=== PATIENT | female | born 1940 | race Caucasian/White ===

== ENCOUNTER → 2017-11-28 09:52 | Outpatient (CLI) | payer MEDICARE, SELFPAY ==
[2017-11-28 12:24] LABS: Absolute Lymphocyte Count 2.25 X10^3/ul (0.83-4.51); Basophil# 0.06 X10^3/uL; Eosinophil# 0.23 X10^3/uL; Eosinophils% 3.8 % (0-5); Hematocrit 39.2 % (37-47); Hemoglobin 13.1 g/dl (12.0-15.0); Lymphocyte # 2.25 X10^3/ul (4.0); Lymphocyte % 37.4 % (19-41); Mean Corp Hgb Conc 33.4 g/gl (32-36); Mean Corpuscular Hgb 32.8 pg (27.0-32.0); Monocyte# 0.44 X10^3/uL; Monocyte% 7.3 % (0-10); Neutrophil # 3.02 X10^3/uL (2.7-7.7); Neutrophil % 50.3 % (47-70); Platelet Count 332 K/mm3 (150-450); RBC Distribution Width CV 13.2 % (11.6-14.6); RBC Distribution Width SD 47.1 fl (35.1-43.9)
[2017-11-28 12:30] LABS: Microalbumin,Random Urine 12.4 mg/L (NO RANGE EST.); Microalbumin:Creatinine Ratio 50.8 mg/g CRE (<30 mg/g CRE)
[2017-11-28 12:33] LABS: POSITIVE COUNT NO; POSITIVE DIFFERENTIAL NO; POSITIVE MORPHOLOGY NO
[2017-11-28 12:37] LABS: Hemoglobin A1c 9.3 % (4.2-6.3); Vitamin D,25 Hydroxy 34.5 ng/mL (29.95-100.01)
[2017-11-28 12:43] LABS: ALB/GLOB Ratio 1.1 RATIO (0.9-2.4); AST(SGOT) 18 U/L (15-37); Alanine Aminotransfer ALT/SGPT 30 U/L (13-56); Albumin, Serum 3.7 g/dL (3.2-5.0); Alkaline Phosphatase 73 U/L (45-117); Anion Gap 9 (5-15); BUN 14 mg/dL (7-18); BUN/Creat Ratio 14.6 RATIO (10-20); Calcium,Total 9.2 mg/dL (8.5-10.1); Chloride 103 mmol/L (98-107); Cholesterol 176 mg/dL (200); Creatinine, Serum 0.96 mg/dL (0.55-1.02); EST Glomerular Filtration Rate 60 mL/min (>60); Est Glom Filt Rate - Afr Amer 72 mL/min (>60); Globulin 3.5 g/dL (2.2-4.2); Glucose 163 mg/dL (74-106); High Density Lipoprotein 61 mg/dL; Potassium 3.9 mmol/L (3.5-5.1); Protein, Total 7.2 g/dL (6.4-8.2); Sodium Level 140 mmol/L (136-145); Thyroid Stim Hormone (TSH) 2.04 uIU/mL (0.358-3.74); Triglycerides 116 mg/dL; Very Low Density Lipoprotein 23 mg/dL (5-40)
== END ==
PROVIDERS: Family Provider Family Medicine; PCP Family Medicine; Visit Provider Family Medicine
DX: E11.40 Type 2 diabetes mellitus with diabetic neuropathy, unspecified (principal); G47.30 Sleep apnea, unspecified
CPT/HCPCS: 36415; 80053; 80061; 82043; 82306; 82570; 83036; 84443; 85025

== ENCOUNTER 2017-12-24 08:10 | Outpatient (RCR) | payer MEDICARE, SELFPAY | END 2018-01-11 23:59 | LOC: DC 08:10 | PROVIDERS: Family Provider Family Medicine; PCP Family Medicine; Visit Provider Family Medicine | DX: E11.40 Type 2 diabetes mellitus with diabetic neuropathy, unspecified (principal); Z71.3 Dietary counseling and surveillance | CPT/HCPCS: G0108 ==

== ENCOUNTER 2018-02-11 10:00 | Outpatient (RCR) | payer MEDICARE, SELFPAY | END 2018-02-11 23:59 | LOC: DC 10:00 | PROVIDERS: Family Provider Family Medicine; PCP Family Medicine; Visit Provider Family Medicine | DX: E11.40 Type 2 diabetes mellitus with diabetic neuropathy, unspecified (principal); Z71.3 Dietary counseling and surveillance | CPT/HCPCS: 97803 ==

== ENCOUNTER → 2018-03-20 10:06 | Outpatient (CLI) | payer MEDICARE, SELFPAY ==
--- NOTE | 2018-03-20 10:09 | BI_ITS ---
MAMMOGRAPHY - BILATERAL SCREENING REASON FOR EXAM: Female, 77 years old. Routine annual screening examination. PERTINENT HISTORY: Non-contributory. TECHNIQUE: Digital bilateral breast emily (3D mammographic acquisition) in the CC and MLO projections. 2-D mediolateral oblique (MLO) and craniocaudad (CC) views of both breasts were obtained. CAD: Full Field Digital Mammography with Computer Added Detection was performed. COMPARISON: Comparison is made with prior study November 16, 2014 and September 07, 2013. FINDINGS: Breast Composition: There are scattered areas of fibroglandular density. There are no dominant masses or suspicious calcifications. Stable benign appearing left axillary lymph nodes. No other significant abnormalities are identified. There has been no significant change since the prior study. BI/SCREENING MAMM (CAD), BILAT IMPRESSION: Stable bilateral screening mammogram. Yearly follow-up mammogram recommended. (A) ASSESSMENT CATEGORY: BIRADS Category 2: Benign. A letter regarding these results will be sent to the patient by the facility within 30 days. Approximately 10% of breast cancers are not detected by mammography. A normal mammogram should not delay biopsy of a clinically suspicious abnormality. [id number] Electronically Signed: Tulio Ramirez MD at 11:36 EST Tel [phone], Service support ,
== END ==
PROVIDERS: Family Provider Family Medicine; PCP Family Medicine; Referring Provider Internal Medicine Medical Oncology; Visit Provider Internal Medicine Medical Oncology
DX: Z12.31 Encounter for screening mammogram for malignant neoplasm of breast (principal)
CPT/HCPCS: 77063; 77067

== ENCOUNTER 2018-03-24 08:17 | Outpatient (RCR) | payer MEDICARE, SELFPAY | END 2018-04-13 23:59 | LOC: DC 08:17 | PROVIDERS: Family Provider Family Medicine; PCP Family Medicine; Visit Provider Family Medicine | DX: E11.40 Type 2 diabetes mellitus with diabetic neuropathy, unspecified (principal); Z71.3 Dietary counseling and surveillance | CPT/HCPCS: 97803 ==

== ENCOUNTER 2018-07-01 15:57 | Outpatient (RCR) | payer MEDICARE, SELFPAY ==
[2017-12-17 13:39] VITALS: BMI 29.9
== END 2018-07-12 23:59 ==
LOC: DC 15:57
PROVIDERS: Family Provider Family Medicine; PCP Family Medicine; Visit Provider Family Medicine
DX: E11.40 Type 2 diabetes mellitus with diabetic neuropathy, unspecified (principal); Z71.3 Dietary counseling and surveillance
CPT/HCPCS: 97803

== ENCOUNTER → 2018-10-22 | Outpatient (CLI) | payer MEDICARE, SELFPAY ==
[2017-12-17 13:39] VITALS: BMI 29.9
[2018-10-22 10:21] LABS: Microalbumin,Random Urine 52.1 mg/L (NO RANGE EST.); Microalbumin:Creatinine Ratio 52.4 mg/g CRE (<30 mg/g CRE)
[2018-10-22 10:30] LABS: AST(SGOT) 19 U/L (15-37); Alanine Aminotransfer ALT/SGPT 34 U/L (13-56); Albumin, Serum 3.5 g/dL (3.2-5.0); Alkaline Phosphatase 85 U/L (45-117); Anion Gap 4 (5-15); BUN 17 mg/dL (7-18); BUN/Creat Ratio 18.5 RATIO (10-20); Calcium,Total 9.3 mg/dL (8.5-10.1); Chloride 104 mmol/L (98-107); Cholesterol 157 mg/dL (200); Creatinine, Serum 0.92 mg/dL (0.55-1.02); EST Glomerular Filtration Rate 63 mL/min (>60); Est Glom Filt Rate - Afr Amer 76 mL/min (>60); Globulin 3.5 g/dL (2.2-4.2); Glucose 185 mg/dL (74-106); High Density Lipoprotein 50 mg/dL; Potassium 4.1 mmol/L (3.5-5.1); Sodium Level 138 mmol/L (136-145)
== END | disposition home or self-care (01) ==
LOC: MTLAB 08:48
PROVIDERS: Family Provider Family Medicine; PCP Family Medicine; Referring Provider Family Medicine; Visit Provider Family Medicine
DX: E11.40 Type 2 diabetes mellitus with diabetic neuropathy, unspecified (principal)
CPT/HCPCS: 36415; 80053; 82043; 82465; 82570; 83718

== ENCOUNTER 2019-01-27 09:05 | Outpatient (RCR) | payer MEDICARE, SELFPAY ==
[2017-12-17 13:39] VITALS: BMI 29.9
[2019-01-13 15:17] VITALS: BMI 28.8
== END 2019-02-11 23:59 ==
LOC: DC 09:05
PROVIDERS: Family Provider Family Medicine; PCP Family Medicine; Visit Provider Family Medicine
DX: E11.40 Type 2 diabetes mellitus with diabetic neuropathy, unspecified (principal); Z71.3 Dietary counseling and surveillance
CPT/HCPCS: 97803

== ENCOUNTER → 2019-03-24 09:58 | Outpatient (CLI) | payer MEDICARE, SELFPAY ==
[2019-01-13 15:17] VITALS: BMI 28.8
[2019-03-12 07:39] VITALS: BMI 28.8
--- NOTE | 2019-03-24 10:02 | BI_ITS ---
MAMMOGRAPHY - BILATERAL SCREENING REASON FOR EXAM: Female, 78 years old. Routine annual screening examination. PERTINENT HISTORY: Non-contributory. TECHNIQUE: Digital bilateral breast ying (3D mammographic acquisition) in the CC and MLO projections. 2-D mediolateral oblique (MLO) and craniocaudad (CC) views of both breasts were obtained. CAD: Full Field Digital Mammography with Computer Added Detection was performed. COMPARISON: Comparison is made with prior study dated March 20, 2018 and November 16, 2014. FINDINGS: Breast Composition: There are scattered areas of fibroglandular density. There are no dominant masses or suspicious calcifications. Stable scattered calcifications. Stable small benign appearing bilateral axillary lymph nodes. No other significant abnormalities are identified. There has been no significant change since the prior study. BI/SCREEN MAMM (CAD) W/YING BILAT IMPRESSION: Stable bilateral screening mammogram. Yearly follow-up mammogram recommended. (A) ASSESSMENT CATEGORY: BIRADS Category 1: Negative. A letter regarding these results will be sent to the patient by the facility within 30 days. Approximately 10% of breast cancers are not detected by mammography. A normal mammogram should not delay biopsy of a clinically suspicious abnormality. [id number] Electronically Signed: Tulio Ramirez, at 11:24 EST , Service support ,
== END ==
PROVIDERS: Family Provider Family Medicine; PCP Family Medicine; Referring Provider Internal Medicine Medical Oncology; Visit Provider Internal Medicine Medical Oncology
DX: Z12.31 Encounter for screening mammogram for malignant neoplasm of breast (principal)
CPT/HCPCS: 77063; 77067

== ENCOUNTER 2019-08-11 08:57 | Outpatient (RCR) | payer MEDICARE, SELFPAY ==
[2019-01-13 15:17] VITALS: BMI 28.8
[2019-06-18 13:52] VITALS: BMI 28.8
== END 2019-08-12 23:59 ==
LOC: DC 08:57
PROVIDERS: Family Provider Family Medicine; PCP Family Medicine; Visit Provider Family Medicine
DX: Z71.3 Dietary counseling and surveillance (principal); E11.40 Type 2 diabetes mellitus with diabetic neuropathy, unspecified
CPT/HCPCS: 97802

== ENCOUNTER 2019-08-18 13:18 | Outpatient (RCR) | payer MEDICARE, SELFPAY ==
[2019-06-18 13:52] VITALS: BMI 28.8
== END 2019-08-18 23:59 | disposition home or self-care (01) ==
LOC: DC 13:18
PROVIDERS: Family Provider Family Medicine; PCP Family Medicine; Visit Provider Family Medicine
DX: Z71.3 Dietary counseling and surveillance (principal); E11.40 Type 2 diabetes mellitus with diabetic neuropathy, unspecified
CPT/HCPCS: G0108

== ENCOUNTER → 2019-08-30 09:10 | Outpatient (CLI) | payer MEDICARE, SELFPAY ==
[2019-06-18 13:52] VITALS: BMI 28.8
[2019-08-30 12:19] LABS: Absolute Lymphocyte Count 2.23 X10^3/uL (0.83-4.51); Absolute Neutrophil Count 3.7 X10^3/uL (2.0-7.7); Basophil# 0.05 X10^3/uL; Basophil% 0.8 % (0-1); Eosinophil# 0.18 X10^3/uL; Eosinophils% 2.7 % (0-5); Hemoglobin 12.1 g/dL (12.0-15.0); Lymphocyte # 2.23 X10^3/ul (4.0); Mean Corp Hgb Conc 32.7 g/dL (32-36); Mean Corpuscular Volume 100.8 fL (81-99); Mean Platelet Vol. 9.9 fl (6.2-12.0); Monocyte# 0.42 X10^3/uL; Monocyte% 6.4 % (0-10); NRBC Flagged by Analyzer 0 % (0-5); Neutrophil # 3.67 X10^3/uL (2.7-7.7); Neutrophil % 55.9 % (47-70); Platelet Count 314 K/mm3 (150-450); RBC Distribution Width CV 14.3 % (11.6-14.6); RBC Distribution Width SD 52.8 fl (35.1-43.9); Red Blood Count 3.67 M/mm3 (4.2-5.4); White Blood Count 6.6 K/mm3 (4.4-11.0)
[2019-08-30 12:39] LABS: AST(SGOT) 15 U/L (15-37); Alanine Aminotransfer ALT/SGPT 25 U/L (13-56); Albumin, Serum 3.5 g/dL (3.2-5.0); Alkaline Phosphatase 61 U/L (45-117); Anion Gap 6 (5-15); BUN 18 mg/dL (7-18); BUN/Creat Ratio 18.7 RATIO (10-20); Calcium,Total 9.5 mg/dL (8.5-10.1); Chloride 104 mmol/L (98-107); Creatinine, Serum 0.96 mg/dL (0.55-1.02); EST Glomerular Filtration Rate 59 mL/min (>60); Est Glom Filt Rate - Afr Amer 71 mL/min (>60); Globulin 3.5 g/dL (2.2-4.2); Glucose 173 mg/dL (74-106); Potassium 3.7 mmol/L (3.5-5.1); Sodium Level 141 mmol/L (136-145); Thyroid Stim Hormone (TSH) 2.27 uIU/mL (0.358-3.74)
[2019-08-30 12:56] LABS: Microalbumin:Creatinine Ratio 72.3 mg/g CRE (<30 mg/g CRE)
== END ==
PROVIDERS: PCP Family Medicine; Referring Provider Family Medicine; Visit Provider Family Medicine
DX: E11.40 Type 2 diabetes mellitus with diabetic neuropathy, unspecified (principal)
CPT/HCPCS: 36415; 80053; 82043; 82570; 84443; 85025

== ENCOUNTER → 2019-11-17 09:40 | Outpatient (CLI) | payer MEDICARE, SELFPAY ==
[2019-09-17 18:44] VITALS: BMI 28.8
== END ==
PROVIDERS: PCP Family Medicine; Referring Provider Nurse Practitioner Adult Health; Visit Provider Nurse Practitioner Adult Health
DX: R53.83 Other fatigue (principal)
CPT/HCPCS: 36415; 84443

== ENCOUNTER → 2020-04-10 10:07 | Outpatient (CLI) | payer MEDICARE, SELFPAY ==
[2020-02-17 13:16] VITALS: BMI 31.1
--- NOTE | 2020-04-10 10:09 | BI_ITS ---
MAMMOGRAPHY - BILATERAL SCREENING REASON FOR EXAM: Female, 79 years old. Routine annual screening examination. PERTINENT HISTORY: Non-contributory. TECHNIQUE: Digital bilateral breast ying (3D mammographic acquisition) in the CC and MLO projections. 2-D mediolateral oblique (MLO) and craniocaudad (CC) views of both breasts were obtained. CAD: Full Field Digital Mammography with Computer Added Detection was performed. COMPARISON: 03/24/2019 and 03/20/2018 FINDINGS: Breast Composition: There are scattered areas of fibroglandular density. There are no dominant masses or suspicious calcifications. No other significant abnormalities are identified. BI/SCREEN MAMM (CAD) W/YING BILAT IMPRESSION: Stable bilateral screening mammogram. Yearly follow-up mammogram recommended. (A) ASSESSMENT CATEGORY: BIRADS Category 2: Benign. A letter regarding these results will be sent to the patient by the facility within 30 days. Approximately 10% of breast cancers are not detected by mammography. A normal mammogram should not delay biopsy of a clinically suspicious abnormality. [id number] Electronically Signed: Miguel Tamayo, at 16:13 EST Tel , Service support ,
== END ==
PROVIDERS: PCP Family Medicine; Referring Provider Family Medicine; Visit Provider Family Medicine
DX: Z12.31 Encounter for screening mammogram for malignant neoplasm of breast (principal)
CPT/HCPCS: 77063; 77067

== ENCOUNTER → 2020-10-03 07:22 | Outpatient (CLI) | payer MEDICARE, SELFPAY ==
[2020-02-17 13:16] VITALS: BMI 31.1
[2020-10-03 10:48] LABS: AST(SGOT) 12 U/L (15-37); Alanine Aminotransfer ALT/SGPT 20 U/L (13-56); Albumin, Serum 3.3 g/dL (3.2-5.0); Alkaline Phosphatase 77 U/L (45-117); Anion Gap 9 (5-15); BUN 23 mg/dL (7-18); BUN/Creat Ratio 25.5 RATIO (10-20); Calcium,Total 9.1 mg/dL (8.5-10.1); Chloride 103 mmol/L (98-107); Cholesterol 190 mg/dL (200); EST Glomerular Filtration Rate 64 mL/min (>60); Est Glom Filt Rate - Afr Amer 77 mL/min (>60); Globulin 3.4 g/dL (2.2-4.2); Glucose 202 mg/dL (74-106); High Density Lipoprotein 53 mg/dL; Protein, Total 6.7 g/dL (6.4-8.2); Sodium Level 137 mmol/L (136-145); Triglycerides 154 mg/dL; Very Low Density Lipoprotein 31 mg/dL (5-40)
[2020-10-03 10:49] LABS: Microalbumin,Random Urine 92.6 mg/L (NO RANGE EST.); Microalbumin:Creatinine Ratio 146.3 mg/g CRE (<30 mg/g CRE)
[2020-10-03 10:52] LABS: Hemoglobin A1c 10.2 % (3.8-5.6)
== END ==
PROVIDERS: PCP Family Medicine; Referring Provider Family Medicine; Visit Provider Family Medicine
DX: E11.40 Type 2 diabetes mellitus with diabetic neuropathy, unspecified (principal)
CPT/HCPCS: 36415; 80053; 80061; 82043; 82570; 83036

== ENCOUNTER → 2020-10-09 10:35 | Outpatient (CLI) | payer MEDICARE, SELFPAY ==
[2020-02-17 13:16] VITALS: BMI 31.1
[2020-10-09 12:24] LABS: ALB/GLOB Ratio 0.8 RATIO (0.9-2.4); AST(SGOT) 125 U/L (15-37); Alanine Aminotransfer ALT/SGPT 288 U/L (13-56); Albumin, Serum 2.9 g/dL (3.2-5.0); Alkaline Phosphatase 169 U/L (45-117); Anion Gap 7 (5-15); BUN 15 mg/dL (7-18); BUN/Creat Ratio 15.2 RATIO (10-20); Calcium,Total 8.8 mg/dL (8.5-10.1); Chloride 101 mmol/L (98-107); Creatinine, Serum 0.99 mg/dL (0.55-1.02); EST Glomerular Filtration Rate 57 mL/min (>60); Est Glom Filt Rate - Afr Amer 69 mL/min (>60); Globulin 3.5 g/dL (2.2-4.2); Glucose 284 mg/dL (74-106); Potassium 3.9 mmol/L (3.5-5.1); Protein, Total 6.4 g/dL (6.4-8.2); Sodium Level 137 mmol/L (136-145)
== END ==
PROVIDERS: PCP Family Medicine; Visit Provider Family Medicine
DX: R11.10 Vomiting, unspecified (principal)
CPT/HCPCS: 36415; 80053

== ENCOUNTER → 2020-10-11 16:11 | Outpatient (CLI) | payer MEDICARE, SELFPAY ==
[2020-02-17 13:16] VITALS: BMI 31.1
[2020-10-11 17:58] LABS: AST(SGOT) 157 U/L (15-37); Alanine Aminotransfer ALT/SGPT 300 U/L (13-56); Alkaline Phosphatase 458 U/L (45-117); Bilirubin, Direct 3.05 mg/dL (0.00-0.30); GGTP 850 U/L (5-55); Lipase 82 U/L (73-393)
[2020-10-12 09:54] LABS: Hepatitis B Surface Antigen Non-Reactive (Nonreactive); Hepatitis C Antibody Non-Reactive (Nonreactive)
[2020-10-13 12:46] LABS: Hepatitis A AB, Total Negative (Negative)
== END ==
PROVIDERS: PCP Family Medicine; Visit Provider Family Medicine
DX: R74.01 Elevation of levels of liver transaminase levels (principal); R11.0 Nausea
CPT/HCPCS: 36415; 80076; 82977; 83690; 86140; 86708; 86803; 87086; 87088; 87340

== ENCOUNTER → 2020-10-12 08:21 | Outpatient (CLI) | payer MEDICARE, SELFPAY ==
[2020-02-17 13:16] VITALS: BMI 31.1
--- NOTE | 2020-10-12 08:30 | US_ITS ---
STUDY: ABDOMINAL ULTRASOUND - RIGHT UPPER QUADRANT REASON FOR VISIT: Female, 80 years old nausea/pain TECHNIQUE: Ultrasound evaluation of the right upper quadrant was performed with real-time and static augustin-scale imaging. TECHNICAL QUALITY: Adequate. COMPARISON: None. FINDINGS: Liver: The liver measures 15.6 cm. There is normal echogenicity of the liver. The bile ducts are within normal limits. There is hepatic color flow. The direction of portal flow is hepatopetal. There is no demonstrated mass lesion. Gallbladder: There is a contracted gallbladder. The gallbladder wall measures 4 mm. There is a negative sonographic Flowers''s sign. There is no pericholecystic fluid. There are multiple echogenic structures within the gallbladder, consistent with multiple gallstones. Common Bile Duct (C.B.D.): The common bile duct measures 3 mm. Pancreas: Normal size of the head, body and tail of the pancreas. There is normal echogenicity of the pancreas. There is no demonstrated pancreatic mass or cyst. Right Kidney: Normal size of the right kidney. The right kidney measures 10.6 cm. Normal renal cortex. The right cortex measures 1.3 cm. There is no demonstrated renal mass or cyst. There is no right hydronephrosis. US/Abdomen Limited IMPRESSION: Cholelithiasis. Electronically Signed: Carlos Gallo MD at 10:15 EDT Tel , Service support ,
--- NOTE | 2020-10-12 15:08 | CT_ITS ---
STUDY: CT ABDOMEN WITH CONTRAST REASON FOR EXAM: Female, 80 years old. GALLBLADDER DISEASE RADIATION DOSAGE (If Supplied By Facility): CTDIvol = ( 19.44 ) mGy, DLP = ( 397.47 ) mGycm TECHNIQUE: Transaxial images were obtained post I.V. administration of Oral and amp; IV Gastrografin and amp; 100mL Isovue-300, and with oral contrast. Sagittal and coronal images were reconstructed. Individualized dose optimization techniques were used for this CT. COMPARISON: None. FINDINGS: The visualized lung bases are unremarkable. The visualized portions of the heart are within normal limits. Normal liver. There are multiple gallstones. Normal spleen. Normal pancreas. Normal bilateral adrenal glands. Normal right kidney. Normal left kidney. There is a small hiatal hernia. Normal small intestine. Normal colon. The appendix is visualized and appears normal. Normal abdominal aorta. Normal inferior vena cava. Normal retroperitoneum. Normal abdominal wall. Mild dextroscoliosis lumbar spine with degenerative disc disease. CT/Abdomen WITH IV Contrast IMPRESSION: Cholelithiasis. Electronically Signed: Carlos Gallo MD at 18:02 EDT Tel , Service support ,
== END ==
PROVIDERS: PCP Family Medicine; Referring Provider Family Medicine; Visit Provider Family Medicine
DX: K82.9 Disease of gallbladder, unspecified (principal)
CPT/HCPCS: 74160; 76705; Q9967; A4216

== ENCOUNTER → 2020-10-17 11:59 | Outpatient (CLI) | payer MEDICARE, SELFPAY ==
[2020-02-17 13:16] VITALS: BMI 31.1
[2020-10-17 13:00] LABS: Absolute Lymphocyte Count 2.02 X10^3/uL (0.83-4.51); Absolute Neutrophil Count 2.6 X10^3/uL (2.0-7.7); Basophil# 0.06 X10^3/uL; Basophil% 1.1 % (0-1); Eosinophil# 0.18 X10^3/uL; Eosinophils% 3.4 % (0-5); Hemoglobin 11.4 g/dL (12.0-15.0); Lymphocyte # 2.02 X10^3/ul (0.83-4.51); Lymphocyte % 38.2 % (19-41); Mean Corp Hgb Conc 32.6 g/dL (32-36); Mean Corpuscular Hgb 32.2 pg (27.0-32.0); Mean Corpuscular Volume 98.9 fL (81-99); Mean Platelet Vol. 9.8 fl (6.2-12.0); Monocyte# 0.37 X10^3/uL; NRBC Flagged by Analyzer 0 % (0-5); Neutrophil # 2.64 X10^3/uL (2.7-7.7); Neutrophil % 49.9 % (47-70); Platelet Count 375 K/mm3 (150-450); RBC Distribution Width CV 14.2 % (11.6-14.6); RBC Distribution Width SD 52.4 fl (35.1-43.9); Red Blood Count 3.54 M/mm3 (4.2-5.4); White Blood Count 5.3 K/mm3 (4.4-11.0)
[2020-10-17 13:18] LABS: ALB/GLOB Ratio 0.8 RATIO (0.9-2.4); AST(SGOT) 19 U/L (15-37); Alanine Aminotransfer ALT/SGPT 70 U/L (13-56); Albumin, Serum 2.9 g/dL (3.2-5.0); Alkaline Phosphatase 227 U/L (45-117); Anion Gap 7 (5-15); BUN 14 mg/dL (7-18); Chloride 104 mmol/L (98-107); Creatinine, Serum 1.17 mg/dL (0.55-1.02); EST Glomerular Filtration Rate 47 mL/min (>60); Est Glom Filt Rate - Afr Amer 57 mL/min (>60); Globulin 3.6 g/dL (2.2-4.2); Glucose 280 mg/dL (74-106); Potassium 4.5 mmol/L (3.5-5.1); Protein, Total 6.5 g/dL (6.4-8.2); Sodium Level 138 mmol/L (136-145)
== END ==
PROVIDERS: PCP Family Medicine; Referring Provider Surgery; Visit Provider Surgery
DX: K80.20 Calculus of gallbladder without cholecystitis without obstruction (principal); C83.00 Small cell B-cell lymphoma, unspecified site
CPT/HCPCS: 36415; 80053; 85025

== ENCOUNTER 2020-10-23 09:21 | Observation (INO) | payer MEDICARE, SELFPAY ==
[2020-10-17 12:54] VITALS: BMI 31.1
--- NOTE | 2020-10-20 13:31 | EKG12_ITS ---
Test Reason : PREOP Blood Pressure : / mmHG Vent. Rate : 069 BPM Atrial Rate : 069 BPM P-R Int : 192 ms QRS Dur : 074 ms QT Int : 396 ms P-R-T Axes : 045 -46 020 degrees QTc Int : 424 ms Normal sinus rhythm Left axis deviation Low voltage QRS Abnormal ECG Confirmed by DAMIÁN THRASHER, NIRAJ ([id number]), publishing editor KAI HANSON ([id number]) on 10/23/2020 12:48:21 PM Referred By: Musa Wu Confirmed By:NIRAJ STEEL MD
[2020-10-20 14:31] LABS: Hemoglobin A1c 9.5 % (3.8-5.6)
[2020-10-23] VITALS (25 sets, daily range): BP systolic 78–136; BP diastolic 43–68; PULSE 66–98; RESP 16–18; TEMP 36.1–37.2; O2SAT 64–98; BMI 28.9
--- NOTE | 2020-10-23 06:33 | PCM.HP.BLA ---
History and Physical Date of Admission: 10/23/20 Intake Vital Signs 10/17/20 12:53 10/17/20 12:54 Height 4 ft 11 in Weight: 145 lb BMI 29.2 31.1 BP 100/67 Blood Pressure Location Lt brachial Position Sitting Respiration 18 Intake Visit Reasons: Gall Stones Chief Complaint: gall stones Laboratory Inspector Required: No Is patient in pain?: Yes Allergies acetaminophen [From Vicodin] Allergy (Verified 10/17/20 12:54) Rash hydrocodone [From Vicodin] Allergy (Verified 10/17/20 12:54) Rash Medications aspirin 81 mg PO DAILY@0800 07/08/16 [History Confirmed 10/17/20] calcium carbonate-vitamin D3 1 ea PO DAILY 07/08/16 [History Confirmed 10/17/20] losartan 25 mg PO DAILY 07/08/16 [History Confirmed 10/17/20] metformin 1,000 mg PO DAILY 07/08/16 [History Confirmed 10/17/20] multivitamin with folic acid 1 tab PO DAILY 07/08/16 [History Confirmed 10/17/20] simvastatin 40 mg PO QHS 07/08/16 [History Confirmed 10/17/20] pioglitazone 30 mg tablet 30 mg PO DAILY #30 tab 07/05/19 [Rx Confirmed 10/17/20] insulin aspar prot-insulin aspart 100 unit/mL (70-30) subcutaneous pen 8 unit SC DINNER ml 02/17/20 [History Confirmed 10/17/20] insulin aspar prot-insulin aspart 100 unit/mL (70-30) subcutaneous pen 18 unit SC BREAKFAST ml 02/17/20 [History Confirmed 10/17/20] blood sugar diagnostic #50 ea 03/03/20 [Rx Confirmed 10/17/20] [facility] Medical History Diabetes History of cancer Hyperlipidemia Hypertension supraclavicular lymph node excision Surgical History History of section History of colonoscopy History of hysterectomy History of tonsillectomy S/P carpal tunnel release Family History Mother CVA (cerebral vascular accident) Diabetes Father CVA (cerebral vascular accident) Social History Smoking Status: Never smoker alcohol intake: never HPI HPI HPI: KENDALL KOVACS, is a 80 F who presents to the office today for abdominal pain. The patient reports that last week she was having epigastric pain with nausea and dry heaving. She went to her doctor and an ultrasound performed as well as lab work. Patient reports that the pain resolved and she is now currently pain-free. She is not having any nausea or vomiting or abdominal pain currently. She said the pain was in the right upper quadrant and epigastric region. ROS General General: Yes weight change and fatigue; No appetite, colon cancer, breast cancer or weakness HEENT HEENT: No difficulty swallowing, eye injury, eye surgery, swollen glands or hoarseness Endo Endocrine: Yes diabetes mellitus; No thyroid disease, thyroid cancer, Hair loss, heat intolerance or cold intolerance Skin Skin: No rash or changing moles Breast Breast: No left breast lump, right breast lump, nipple discharge, breast pain, abnormal mammogram, abnormal US or breast enlargement Musc Musculoskeletal: No back problems, arthritis, rheumatoid arthritis, gout or joint pain Cardio Cardiovascular: No murmur, pacemaker, heart disease, atrial fibrillation, high blood pressure, heart attack, heart stent, palpitations, shortness of breat with exertion or chest pain Psych Psychiatric: No depression, anxiety or hearing voices Resp Respiratory: No shortness of breath, No sleep apnea, No cough, No COPD, No asthma, No emphysema and No wheezing Gastro Gastrointestinal: Yes abdominal pain, Yes nausea or vomiting, No diarrhea, No constipation, No blood in stool, No acid reflux, No hemorrhoids, No ulcers, Yes gallbladder problem and No black,tarry stools Aroldo Hematologic: No blood thinners, No blood disorders, No bleeding, No anemia and No blood clots Neuro Neurologic: No system reviewed and no additional complaints, except as documented, No as per HPI, No abnormal gait, No abnormal hearing, No abnormal movements, No abnormal speech, No behavioral changes, No burning sensations, No confusion, No convulsions, No disequilibrium, No dizziness, No localized weakness, No frequent falls, No headache(s), No lack of coordination, No loss of vision, No memory loss, No numbness, No other visual disturbances, No radicular pain, No restless legs, No sensory deficit, No syncope, No tingling, No tremor(s), No weakness and No other Exam Const General: cooperative Orientation: alert and oriented x3 HENMT Head: normal to inspection Neck Neck: normal visual inspection and full ROM Chest Chest palpation & inspection: normal inspection of the chest Resp Effort & Inspection: normal respiratory effort Auscultation: clear to auscultation bilaterally Cardio Rate: regular rate Rhythm: regular rhythm GI Inspection: non-distended Palpation: soft and nontender Skin General: no rashes or lesions noted Neuro General: patient alert and patient oriented x3 Extrem General: full ROM Psych Appearance: grossly normal Mental Status: mental status grossly normal Assessment and Plan Assessment and Plan (1) Cholelithiasis: Status: Acute Qualifiers: Cholelithiasis location: gallbladder Cholecystitis presence: without cholecystitis Biliary obstruction: with biliary obstruction Qualified Code(s): K80.21 - Calculus of gallbladder without cholecystitis with obstruction Plan - Dr. Musa Wu MD: The patient had lab work done last week which showed elevated liver enzymes. Patient also an ultrasound which showed cholelithiasis with no thickening of the gallbladder. The patient is currently not having any abdominal pain. I recheck labs today and her white count is normal as are her LFTs. The patient should have laparoscopic cholecystectomy and I will schedule her for this electively. I also discussed with her the possibility of partial cholecystectomy if the inflammation is too great and need for possible ERCP for stent placement if that is done. I discussed the procedure in detail with the patient. I discussed the risks, benefits, and alternatives of the procedure. I discussed the risks including but not limited to bleeding, infection, injury to surrounding organs such as the liver, bile duct, bowels. I did discuss the possibility of having to convert to an open procedure as well as the possibility that if any injuries occurred this may necessitate further surgery at a tertiary care center. Musa Wu MD Pager: [facility] [address] [place] [address], [address] [place] [address] Office: I have seen and reexamined pt with no changes.
[2020-10-23] MEDS: Lactated Ringers 1,000 ML 100 ML IV ×2 (06:51→09:28)
[2020-10-23 06:56] LABS: Bedside Glucose 205 mg/dL (70-110)
[2020-10-23] MEDS: Cefotetan 2 GM in 0.9% NS 100 ML IV (07:18)
--- NOTE | 2020-10-23 07:30 | GALL_PTH ---
PATIENT: KENDALL KOVACS LOC: MS3 U#:[id number] AGE/SX: 80/F ROOM: MS319 RE10/23/[address]: Dr. Musa Wu MD : 1940 BED: 1 DIS: 10/24/2020 SPEC #: [id number] RECD: 10/23/20 09:45 STATUS: WARNER BARRETT #: [id number] LORENZO: 10/23/20 07:[address]: Musa Wu DEPT: SURGICAL PATHOLOGY RECD BY: Kalyn Jasso ENTERED: 10/23/20 11:58 SP TYPE: DU DUMONT DR: Dr. Darnell Sanchez MD Tissues: Gallbladder, NOS Procedures: Surgery Specimen Level III HEADER OPERATION: Laparoscopic cholecystectomy with IOC PRE-OP DIAGNOSIS: Cholelithiasis TISSUE SUBMITTED: Gallbladder MICROSCOPIC DIAGNOSIS Gallbladder, cholecystectomy: Chronic cholecystitis with Rokitansky-Aschoff sinuses and cholelithiasis. AM:akbar 10/24/2020 MICROSCOPIC DESCRIPTION Slides are reviewed. GROSS DESCRIPTION Received is one container labeled with the patient's name and designated gallbladder. The specimen consists of a gallbladder measuring 7.5 cm in length and up to 3.5 cm in diameter. The external surface is pink-caballero, smooth and glistening for the most part. Focally it is granular, hemorrhagic and contains cautery artifact. The gallbladder contains caballero-light yellow mucoid bile and multiple brownish-green stones and stone fragments measuring in aggregate 4 x 2 x 1.5 cm and 0.4 to 2 cm in greatest dimension. The mucosa is bile-stained and without any mass lesions. The gallbladder wall measures up to 0.4 cm in thickness. Zipper Ironer sections from the gallbladder and the cystic duct are submitted in one cassette. / SJ:akbar 10/23/20 TC:3 CPT: 68022
--- NOTE | 2020-10-23 07:30 | RAD_ITS ---
STUDY: INTRAOPERATIVE CHOLANGIOGRAM. REASON FOR EXAM: Female, 80 years old. PAIN FLUOROSCOPY TIME (if supplied): ( 14 seconds ) minutes/seconds. A cine loop of 94 images was submitted. TECHNIQUE: An intraoperative cholangiogram was performed by the surgeon. Imaging was submitted. COMPARISON: None. FINDINGS: Filling defects are seen in the distal portion of the common bile duct suggestive of choledocholithiasis. Contrast is seen within the duodenum. RAD/Cholangiogram/ O R,Initial IMPRESSION: Findings in keeping with choledocholithiasis. Electronically Signed: Tulio Ramirez MD at 8:45 EDT , Service support ,
[2020-10-23] MEDS: Bupivacaine 0.25%-Epi/Pf 1:200,000 10 ML (08:06)
[2020-10-23 08:35] LABS: Bedside Glucose 202 mg/dL (70-110)
--- NOTE | 2020-10-23 09:25 | PCM.OPRPT ---
Problems Associated Problem List Diagnoses (1) Cholelithiasis: Report of Operation Date of Procedure: 10/23/20 Pre-Operative Diagnosis: Cholelithiasis Post-Operative Diagnosis: Cholelithiasis with choledocholithiasis Surgery/Procedure Performed:: Laparoscopic cholecystectomy with cholangiogram Description of Surgical Findings:: 2 stones in the common bile duct on cholangiogram Specimen's removed: Gallbladder and contents Description of Procedure: After obtaining informed consent patient was brought back to the operating room. General anesthesia was induced. The abdomen was prepped and draped in usual sterile fashion. A small midline incision was made superior to the umbilicus and deepened to the level of fascia. The fascia was elevated and incised. Next the peritoneum was elevated and incised in the same fashion. Finger sweep was performed and the Rivera trocar was placed into the abdomen. The balloon was inflated. The abdomen was inflated to 15 mmHg. Next a camera was introduced into the abdomen and the abdomen was inspected. Next under direct visualization three 5-mm ports were placed one subxiphoid and 2 subcostal. Next the gallbladder was elevated and retracted toward the right shoulder. The peritoneum was stripped from the gallbladder. The infundibulum was located and retracted laterally. Next the triangle of Calot was dissected and the cystic duct and cystic artery were identified. Cholangiograms were performed. A small mitchel was made in the right upper quadrant and a Ranfac catheter was placed into the abdomen. The gallbladder was elevated and the cystic duct was clamped proximally and a mitchel was made in the cystic duct. The Ranfac was placed through this and clipped. Under fluoroscopy the contrast was instilled into the cystic duct and there was good filling of the common bile duct proximally and distally. There was contrast entering the duodenum although there were 2 large stones in the distal common bile duct. The clip was removed as well as the catheter and the infundibulum was grasped once more. Three hemolock clips were placed across the cystic duct. The cystic duct was then divided leaving 2 clips on the stump. The cystic artery was clipped and divided in the same fashion. The hook cautery was then used to take the gallbladder off of the gallbladder bed. Hemostasis was obtained. Gallbladder fossa was irrigated and no active bleeding or bile leakage was noted. Next the camera was introduced in the subxiphoid port. An Endopouch bag was placed through the umbilical port and the gallbladder was placed into it. The gallbladder was then removed through the umbilical incision. The camera was then reinserted through the umbilical port. The gallbladder fossa was inspected once more and noted to be hemostatic with no leaking bile. The abdomen was suctioned dry. The 5 mm ports were removed under direct visualization. The umbilical port was then removed and the air was removed from the abdomen. Next using an 0 Vicryl suture the umbilical fascia was closed in a [id number] fashion. The umbilical port site was irrigated local anesthetic was administered to all the incisions. All the incisions were closed with interrupted subcuticular 4-0 Monocryl sutures followed by Steri-Strips and dressings. The patient was awoken and taken to PACU in stable condition. Admit VTE Documentation VTE Mechan Device Prophylaxis: SCD's
--- NOTE | 2020-10-23 09:27 | PN_ITS ---
Progress Note I discussed the cholangiogram with the patient and her family. I recommended ERCP for clearance of these distal common bile duct stones. I discussed ERCP in detail as well as the risks of bleeding, infection, perforation of the bile duct or bowel, pancreatitis. I also explained the possibility of stent placement and subsequent ERCP needed. The patient and her family agreed to proceed and I had her signed the consent form as she was under the influence of narcotics. The patient will be taken later this afternoon for ERCP with clearance of the common bile duct. The patient will be admitted overnight for observation. Musa Wu MD Pager: [facility] [address] [place] [address] [address] [place] [address] Office:
--- NOTE | 2020-10-23 15:00 | RAD_ITS ---
CLINICAL HISTORY: Female, 80 years old. Pain. PROCEDURE: ERCP. TECHNIQUE: Fluoroscopic guidance was provided in the procedure over during a ERCP. A single image was provided. The study was compared to an earlier ERCP performed approximately 3 1/2 hours earlier. The single provided image demonstrates an endoscope in the duodenum with cannulization of the bile ducts. Contrast is seen in the intrahepatic ducts and common hepatic duct. There is no evidence of obstruction or dilatation. The distal duct is not clearly identified. Contrast is seen within the duodenum. Please refer to the procedural report for further detail RAD/ERCP Biliary Only IMPRESSION: Fluoroscopy provided during an ERCP. Electronically Signed: Paco Andrade DO at 19:16 EDT Tel [phone], Service support ,
[2020-10-23] MEDS: 0.9% Normal Saline 1,000 ML 100 ML IV (17:55)
[2020-10-23 18:05] LABS: Bedside Glucose 202 mg/dL (70-110)
[2020-10-23] MEDS: Insulin Lispro 100 UNIT/ML INSULN.PEN SC ×2 (18:06→22:30)
[2020-10-23] MEDS: 0.9% Saline Lock 10 ML Syringe IV (22:34)
[2020-10-23] MEDS: Ondansetron 4 MG/2 ML Vial IV (22:34)
[2020-10-23 22:41] LABS: Bedside Glucose 311 mg/dL (70-110)
[2020-10-24] VITALS (8 sets, daily range): BP systolic 94–126; BP diastolic 45–58; PULSE 70–80; RESP 16–18; TEMP 36.8–37.2; O2SAT 86–99
--- NOTE | 2020-10-24 00:39 | OP.CCLET_ITS ---
10/24/2020 Darnell Sanchez [address] [facility] [address] [place] [address] Re : ERCP procedure for Ct [facility] Dear Dr. Sanchez This procedure was performed on Friday, October 23, 2020. My impressions and recommendations are as follows: Impressions : - Choledocholithiasis was found. Complete removal was accomplished by biliary sphincterotomy and balloon extraction. - A biliary sphincterotomy was performed. - The biliary tree was swept. Recommendations : - [facility]. My findings are described in the full procedure note, which is enclosed. If I can be of further assistance, please feel free to contact me at Doctor phone number(s): , Work: . Sincerely, Musa Wu MD 10/23/2020 4:16:13 PM This report has been signed electronically.
--- NOTE | 2020-10-24 00:39 | OP.ERCP_ITS ---
Patient Name: Ct Velazco Procedure Date: 10/23/2020 3:07 PM Date of : 1940 Age: 80 Procedure: ERCP Indications: Common bile duct stone(s) Providers: Musa Wu MD Referring MD: Musa Wu MD Medicines: General Anesthesia Patient Profile: This is an 80 year old female. Refer to note in patient chart for documentation of history and physical. Complications: No immediate complications. Procedure: Pre-Anesthesia Assessment: - Prior to the procedure, a History and Physical was performed, and patient medications and allergies were reviewed. The patient's tolerance of previous anesthesia was also reviewed. The risks and benefits of the procedure and the sedation options and risks were discussed with the patient. All questions were answered, and informed consent was obtained. Prior Anticoagulants: The patient has taken no previous anticoagulant or antiplatelet agents. After reviewing the risks and benefits, the patient was deemed in satisfactory condition to undergo the procedure. After obtaining informed consent, the scope was passed under direct vision. Throughout the procedure, the patient's blood pressure, pulse, and oxygen saturations were monitored continuously. The duodenoscope was introduced through the mouth, and advanced to the duodenum and used to inject contrast into the bile duct. The ERCP was accomplished without difficulty. The patient tolerated the procedure well. Scope In: 3:22:11 PM Scope Out: 3:28:40 PM Total Procedure Duration Time 0 hours 6 minutes 29 seconds Findings: A 0.035 inch x 260 cm straight Dreamwire was passed into the biliary tree. The bile duct was then deeply cannulated over the guidewire. Contrast was injected. The lower third of the main bile duct contained two stones mm. Biliary sphincterotomy was made with a monofilament sphincterotome using ERBE electrocautery. There was no post-sphincterotomy bleeding. The biliary tree was swept with a 12 mm balloon starting at the bifurcation. A few stones were removed. No stones remained. Impression: - Choledocholithiasis was found. Complete removal was accomplished by biliary sphincterotomy and balloon extraction. - A biliary sphincterotomy was performed. - The biliary tree was swept. Recommendation: - [facility]. Procedure Code(s): --- Professional --- 70983, Endoscopic retrograde cholangiopancreatography (ERCP); with removal of calculi/debris from biliary/pancreatic duct(s) 94636, Endoscopic retrograde cholangiopancreatography (ERCP); with sphincterotomy/papillotomy Diagnosis Code(s): --- Professional --- K80.50, Calculus of bile duct without cholangitis or cholecystitis without obstruction CPT copyright 2017 [employer]. All rights reserved. The codes documented in this report are preliminary and upon jockey's agent review may be revised to meet current compliance requirements. Musa Wu MD 10/23/2020 4:16:13 PM This report has been signed electronically. Number of Addenda: 0 Note Initiated On: 10/23/2020 3:07 PM
[2020-10-24] MEDS: 0.9% Normal Saline 1,000 ML 100 ML IV (02:22)
[2020-10-24] MEDS: Insulin Lispro 100 UNIT/ML INSULN.PEN SC (06:24)
[2020-10-24 06:31] LABS: Bedside Glucose 221 mg/dL (70-110)
--- NOTE | 2020-10-24 06:51 | EX.PCM.DISCH ---
Discharge Instructions Procedure Gallbladder Diet Discharge Diet: Light diet - advance as tolerated Activity Discharge Activity: May Not Drive (for 2-3 days or while taking narcotic pain medications.) and - (Do not drive, work heavy equipment or sign legal documents for 24 hours.) May shower in (days): 1 Lifting Restrictions: 20 lbs for 2 weeks Additional Activity Instructions:: Pain medication may cause nausea. You should typically eat light foods as you take your pain medications. Pain medication may also cause constipation. If this is a problem for you, please discuss with your doctor. Dressing / Incision Call your doctor if your incision/area has: Continuous Slow Oozing, Sudden Increased Bleeding, Increased Pain/ Swelling, Increased Redness and Foul Smelling Discharge Call your doctor if you observe: Fever of 101 or Higher Suture Line Care: Avoid Pulling/Pushing and Avoid Pinching/Bending Remove Dressing in: 2 days Cleanse incision/area with: Soap & Water Additional Dressing/Incision Instructions:: Leave operative bandaids on for 2 days. When you remove dressing, leave Steri-Strips on until your follow-up appointment, or until the Steri-Strips fall off on their own. Follow Up Care Please Follow Up With: Musa Wu MD When: Please call to schedule 2 week follow up appointment. [phone] Test Results: Test results from this visit will be discussed in further detail at your follow-up appointment, if applicable. Discharge Plan Admission Admit Date/Time: 10/23/20 09:21 Attending Provider: Musa Wu Primary Care Provider: Darnell Sanchez Discharge Orders/Prescriptions Prescriptions: Continued calcium carbonate-vitamin D3 1 EACH tablet 1 ea PO DAILY RF: 0 simvastatin 40 MG tablet 40 mg PO QHS RF: 0 losartan 25 MG tablet 25 mg PO QHS RF: 0 aspirin 81 MG tablet,chewable 81 mg PO DAILY@0800 RF: 0 multivitamin with folic acid 1 TABLET tablet 1 tab PO DAILY RF: 0 insulin asp prt-insulin aspart 100 unit/mL (70-30) insulin pen 18 unit SC BREAKFAST RF: 0 insulin asp prt-insulin aspart 100 unit/mL (70-30) insulin pen 12 unit SC DINNER RF: 0 (DME) Accu-Chek Guide test strips Strip See Rx Instructions .ROUTE .MEDSUPPLY Qty: 50 RF: 12 Other Ambulatory Orders: 12 Lead EKG (Routine) Timeframe: 20201020 Location: None Selected Ordered By: Dr. Darnell Nelson Referrals / Follow Up: Darnell Sanchez MD [Primary Care Provider] - Disposition Disposition (needs filled in before D/C Order can be placed): Home, Self Care
--- NOTE | 2020-10-24 11:01 | CASEMGMT ---
RN SALINAS TILE MOLDER HAND CM to room to meet with patient for initial transition planning/care coordination assessment. BLANCO NIÑO introduced self and role at [facility]. Pt voices understanding and consents to assessment at this time. Pt sitting up in chair in room in no distress at this time. Daughter, Nicole, in room visiting. Pt is A/O at this time and answers all questions appropriately. Care providers, pharmacy, and demographics verified/updated at this time. PCP: Dr Darnell Sanchez Specialists:Dr Wu--surgeon, Dr Rooney--oncology, Dr Mccord--endocrinology, [facility] Preferred Pharmacy: [facility] Retail Insurance:zlien Prescription Benefit: Yes Living Will/HPOA: Has both LW and Healthcare POA, who is her , Remi LNOK: , Remi. Dtr, Nicole. Living Arrangements: Lives w/her , Remi, in one-story home w/one step to enter. Independent prior to surgery. Pt works 3 days a week. Dtr, Nicole, plans to stay with pt for a few days upon return to home to assist as needed. Transportation: Pt states drives self and states no transportation concerns at this time. also drives. DME: Denies using any DME and denies needs. Has an old CPAP, that she has not used in years. HHC/SNF: No history of either. Denies need for HHC or OP therapy. Pt wishes to return home and states has no concerns with going home at time of discharge. CM to follow for any discharge planning/needs. Pt /dtr voice no concerns/needs at this time. Advised them to ask for CM if any further questions/concerns/needs arise. They voice understanding. PLAN: Home w/family support and discharge plans in place. Janet HERNANDEZ RN, CM
--- NOTE | 2020-10-24 11:29 | PHA.DC.MR ---
Pharmacy Service has performed discharge medication reconciliation for this patient. The patient's discharge medication list was reviewed for discrepancies and discrepancies were resolved. Home Medications aspirin 81 mg PO DAILY@0800 07/08/16 calcium carbonate-vitamin D3 1 ea PO DAILY 07/08/16 losartan 25 mg PO QHS 07/08/16 multivitamin with folic acid 1 tab PO DAILY 07/08/16 simvastatin 40 mg PO QHS 07/08/16 insulin aspar prot-insulin aspart 100 unit/mL (70-30) subcutaneous pen 12 unit SC DINNER ml 02/17/20 insulin aspar prot-insulin aspart 100 unit/mL (70-30) subcutaneous pen 18 unit SC BREAKFAST ml 02/17/20 blood sugar diagnostic #50 ea 03/03/20
== END 2020-10-24 11:50 | disposition home or self-care (01) ==
LOC: SDC 09:52 → MS3 09:52
PROVIDERS: Anesthesiology; Admitting Provider Surgery; PCP Family Medicine; Referring Provider Surgery; Visit Provider Surgery
PROC: (CPT 47610; principal; 2020-10-23 07:10)
DX: K80.64 Calculus of gallbladder and bile duct with chronic cholecystitis without obstruction (principal); I10 Essential (primary) hypertension; E11.9 Type 2 diabetes mellitus without complications; Z79.82 Long term (current) use of aspirin; Z79.4 Long term (current) use of insulin; Z79.899 Other long term (current) drug therapy; E66.9 Obesity, unspecified; E78.2 Mixed hyperlipidemia; Z68.28 Body mass index [BMI] 28.0-28.9, adult; G47.30 Sleep apnea, unspecified; Z85.6 Personal history of leukemia
CPT/HCPCS: 00790; 43262; 43264; 47563; 36415; 74300; 74328; 76000; 82962; 83036; 88304; 93005; 96361; 96374; 99218; J7030; J7120; A4216; G0378; G0379; J2405

== ENCOUNTER 2020-10-30 12:58 | Outpatient (RCR) | payer MEDICARE, SELFPAY ==
[2020-10-23 06:20] VITALS: BMI 28.9
== END 2020-11-11 23:59 ==
LOC: DC 12:58
PROVIDERS: PCP Family Medicine; Visit Provider Family Medicine
DX: E11.40 Type 2 diabetes mellitus with diabetic neuropathy, unspecified (principal)
CPT/HCPCS: 97802

== ENCOUNTER → 2020-10-31 16:41 | Outpatient (CLI) | payer MEDICARE, SELFPAY ==
[2020-10-23 06:20] VITALS: BMI 28.9
== END ==
PROVIDERS: PCP Family Medicine; Visit Provider Family Medicine
DX: R05 Cough (principal)
CPT/HCPCS: 87635; U0005; U0003

== ENCOUNTER → 2020-11-01 10:23 | Outpatient (CLI) | payer MEDICARE, SELFPAY ==
[2020-10-23 06:20] VITALS: BMI 28.9
--- NOTE | 2020-11-01 10:25 | RAD_ITS ---
STUDY: X-RAY CHEST REASON FOR EXAM: Female, 80 years old. Cough and drainage. TECHNIQUE: PA and lateral views of the chest. COMPARISON: None. FINDINGS: The lungs are clear and expanded. There is no demonstrated pleural abnormality. Normal size heart. Normal mediastinum and mohit. Normal visualized pulmonary arteries. There is atherosclerotic calcification of the aortic arch with tortuosity. There are diffuse degenerative changes of the visualized thoracic spine. Normal visualized ribs, clavicles, and shoulders. There is no demonstrated abnormality of the visualized soft tissue structures of the upper abdomen. RAD/Chest PA and Lateral IMPRESSION: No acute abnormality is seen. Electronically Signed: Tulio Ramirez MD at 13:34 EDT , Service support ,
== END ==
PROVIDERS: PCP Family Medicine; Referring Provider Family Medicine; Visit Provider Family Medicine
DX: R05 Cough (principal)
CPT/HCPCS: 71046

== ENCOUNTER → 2020-11-13 | Outpatient (CLI) | payer MEDICARE, SELFPAY ==
[2020-10-23 06:20] VITALS: BMI 28.9
[2020-11-13 19:18] LABS: Probe Check PASS; Specimen Processing Control PASS
== END | disposition home or self-care (01) ==
PROVIDERS: PCP Family Medicine; Referring Provider Family Medicine; Visit Provider Family Medicine
DX: Z20.822 Contact with and (suspected) exposure to COVID-19 (principal)
CPT/HCPCS: 87635; U0005; U0003

== ENCOUNTER 2020-11-22 12:54 | Outpatient (RCR) | payer MEDICARE, SELFPAY ==
[2020-10-23 06:20] VITALS: BMI 28.9
== END 2020-12-12 23:59 ==
LOC: DC 12:54
PROVIDERS: PCP Family Medicine; Visit Provider Family Medicine
DX: E11.40 Type 2 diabetes mellitus with diabetic neuropathy, unspecified (principal)
CPT/HCPCS: 97803

== ENCOUNTER 2020-12-27 16:37 | Outpatient (RCR) | payer MEDICARE, SELFPAY ==
[2020-12-13 00:40] VITALS: BMI 28.9
== END 2021-01-11 23:59 ==
LOC: DC 16:37
PROVIDERS: PCP Family Medicine; Visit Provider Family Medicine
DX: E11.40 Type 2 diabetes mellitus with diabetic neuropathy, unspecified (principal)
CPT/HCPCS: 97803

== ENCOUNTER → 2021-02-14 | Outpatient (CLI) | payer MEDICARE, SELFPAY | END | disposition home or self-care (01) | PROVIDERS: PCP Family Medicine; Visit Provider Family Medicine | DX: U07.1 COVID-19 (principal) | CPT/HCPCS: 87635; U0005; U0003 ==

== ENCOUNTER 2021-02-16 13:44 | Outpatient (CLI) | payer MEDICARE, SELFPAY ==
[2021-02-16] MEDS: 0.9% Saline Lock 10 ML Syringe IV (14:00)
[2021-02-16 14:02] VITALS: BP 125/60; PULSE 96; RESP 16; TEMP 36.8; O2SAT 99; BMI 29.0
[2021-02-16 14:48] VITALS: BP 121/70; PULSE 86; RESP 16; TEMP 36.9; O2SAT 96
[2021-02-16 15:40] VITALS: BP 138/64; PULSE 88; RESP 16; TEMP 36.9; O2SAT 99
== END 2021-02-16 15:48 | disposition home or self-care (01) ==
LOC: MS3OUT 13:44 → MS3 13:45
PROVIDERS: PCP Family Medicine; Referring Provider Nurse Practitioner Adult Health; Visit Provider Nurse Practitioner Adult Health
DX: Z23 Encounter for immunization (principal); U07.1 COVID-19
CPT/HCPCS: J7050; M0245; Q0245; A4216

== ENCOUNTER → 2021-04-11 09:45 | Outpatient (CLI) | payer MEDICARE, SELFPAY ==
--- NOTE | 2021-04-11 09:54 | BI_ITS ---
MAMMOGRAPHY - BILATERAL SCREENING 3-D TOMOSYNTHESIS REASON FOR EXAM: Female, 80 years old. SCREENING PERTINENT HISTORY: No significant family history. TECHNIQUE: 2-D mammograms and 3-D Tomosynthesis of the breast (s) were performed. CAD was performed. COMPARISON: 04/10/2020 FINDINGS: The breast composition is composed of scattered fibroglandular density. Scattered benign calcifications are seen. No dense spiculated masses or suspicious microcalcifications are identified. No architectural distortion is identified. There is no skin thickening or retraction. Bilaterally benign rodlike calcifications consistent with secretory calcifications. BI/SCRN MAMM (CAD)W/YING BILAT IMPRESSION: No mammographic signs of malignancy. Routine yearly mammograms recommended. ASSESSMENT CATEGORY: BIRADS Category 2: Benign. A letter regarding these results will be sent to the patient by the facility within 30 days. FOLLOW UP RECOMMENDATION: Yearly follow up mammogram recommended. (A) Approximately 10% of breast cancers are not detected by mammography. A normal mammogram should not delay biopsy of a clinically suspicious abnormality. Electronically Signed: Carlos Gallo MD at 10:57 EST Tel , Service support ,
== END ==
PROVIDERS: PCP Family Medicine; Referring Provider Internal Medicine Medical Oncology; Visit Provider Internal Medicine Medical Oncology
DX: Z12.31 Encounter for screening mammogram for malignant neoplasm of breast (principal)
CPT/HCPCS: 77063; 77067

== ENCOUNTER 2021-04-16 16:00 | Outpatient (CLI) | payer MEDICARE, SELFPAY | END 2021-04-16 23:59 | disposition short-term general hospital (02) | LOC: LABSPEC 04-19 13:50 | PROVIDERS: Visit Provider Nurse Practitioner Family | DX: U07.1 COVID-19 (principal); J06.9 Acute upper respiratory infection, unspecified | CPT/HCPCS: 87635; U0003; U0005 ==

== ENCOUNTER 2021-04-23 08:09 | Outpatient (CLI) | payer MEDICARE, SELFPAY | END 2021-04-23 23:59 | disposition short-term general hospital (02) | LOC: LABSPEC 04-24 08:13 | PROVIDERS: Referring Provider Nurse Practitioner Family; Visit Provider Nurse Practitioner Family | DX: U07.1 COVID-19 (principal) | CPT/HCPCS: 87635; U0003; U0005 ==

== ENCOUNTER 2021-05-23 14:01 | Outpatient (RCR) | payer MEDICARE, SELFPAY ==
[2021-01-12 00:31] VITALS: BMI 28.9
== END 2021-06-11 23:59 ==
LOC: DC 14:01
PROVIDERS: Visit Provider Family Medicine
DX: E11.40 Type 2 diabetes mellitus with diabetic neuropathy, unspecified (principal)
CPT/HCPCS: 97803

== ENCOUNTER 2021-06-15 10:16 | Outpatient (CLI) | payer MEDICARE, SELFPAY ==
[2021-06-15 10:46] LABS: Absolute Lymphocyte Count 1.78 X10^3/uL (0.83-4.51); Absolute Neutrophil Count 3.4 X10^3/uL (2.0-7.7); Basophil# 0.06 X10^3/uL; Eosinophil# 0.17 X10^3/uL; Hematocrit 38.6 % (37-47); Hemoglobin 13.2 g/dL (12.0-15.0); Lymphocyte # 1.78 X10^3/ul (0.83-4.51); Mean Corp Hgb Conc 34.2 g/dL (32-36); Mean Corpuscular Hgb 33.8 pg (27.0-32.0); Mean Corpuscular Volume 98.7 fL (81-99); Monocyte# 0.36 X10^3/uL; Monocyte% 6.3 % (0-10); NRBC Flagged by Analyzer 0 % (0-5); Neutrophil # 3.36 X10^3/uL (2.7-7.7); Neutrophil % 58.5 % (47-70); Platelet Count 261 K/mm3 (150-450); RBC Distribution Width CV 13.2 % (11.6-14.6); RBC Distribution Width SD 48.2 fl (35.1-43.9); Red Blood Count 3.91 M/mm3 (4.2-5.4); White Blood Count 5.7 K/mm3 (4.4-11.0)
[2021-06-15 11:11] LABS: ALB/GLOB Ratio 1.1 RATIO (0.9-2.4); AST(SGOT) 15 U/L (15-37); Alanine Aminotransfer ALT/SGPT 26 U/L (13-56); Albumin, Serum 3.4 g/dL (3.2-5.0); Alkaline Phosphatase 72 U/L (45-117); Anion Gap 4 (5-15); BUN 22 mg/dL (7-18); Calcium,Total 9.4 mg/dL (8.5-10.1); Chloride 105 mmol/L (98-107); Creatinine, Serum 0.88 mg/dL (0.55-1.02); EST Glomerular Filtration Rate 65 mL/min (>60); Est Glom Filt Rate - Afr Amer 79 mL/min (>60); Globulin 3.1 g/dL (2.2-4.2); Glucose 272 mg/dL (74-106); Potassium 4.3 mmol/L (3.5-5.1); Protein, Total 6.5 g/dL (6.4-8.2); Sodium Level 139 mmol/L (136-145)
== END 2021-06-15 23:59 | disposition home or self-care (01) ==
LOC: MFPLAB 10:17
PROVIDERS: Visit Provider Family Medicine
DX: N18.9 Chronic kidney disease, unspecified (principal); R00.0 Tachycardia, unspecified
CPT/HCPCS: 36415; 80053; 84443; 85025

== ENCOUNTER 2021-12-19 08:25 | Outpatient (RCR) | payer MEDICARE, SELFPAY ==
[2021-06-12 00:07] VITALS: BMI 28.9
== END 2022-01-11 23:59 ==
LOC: DC 08:25
PROVIDERS: PCP Family Medicine; Referring Provider Family Medicine; Visit Provider Family Medicine
DX: E11.9 Type 2 diabetes mellitus without complications (principal)
CPT/HCPCS: 97802

== ENCOUNTER → 2022-07-26 | Outpatient (CLI) | payer MEDICARE, SELFPAY ==
[2022-07-26 17:44] LABS: Absolute Lymphocyte Count 2.84 X10^3/uL (0.83-4.51); Absolute Neutrophil Count 3.2 X10^3/uL (2.0-7.7); Basophil# 0.06 X10^3/uL; Basophil% 0.9 % (0-1); Eosinophils% 2.9 % (0-5); Hematocrit 40.1 % (37-47); Hemoglobin 13.1 g/dL (12.0-15.0); Lymphocyte # 2.84 X10^3/ul (0.83-4.51); Lymphocyte % 41.6 % (19-41); Mean Corp Hgb Conc 32.7 g/dL (32-36); Mean Corpuscular Hgb 31.8 pg (27.0-32.0); Mean Corpuscular Volume 97.3 fL (81-99); Mean Platelet Vol. 10.2 fl (6.2-12.0); Monocyte# 0.54 X10^3/uL; Monocyte% 7.9 % (0-10); NRBC Flagged by Analyzer 0 % (0-5); Neutrophil # 3.17 X10^3/uL (2.7-7.7); Neutrophil % 46.4 % (47-70); Platelet Count 304 K/mm3 (150-450); RBC Distribution Width CV 13.8 % (11.6-14.6); RBC Distribution Width SD 49.8 fl (35.1-43.9); Red Blood Count 4.12 M/mm3 (4.2-5.4); White Blood Count 6.8 K/mm3 (4.4-11.0)
[2022-07-26 18:15] LABS: Hemoglobin A1c 9.2 % (3.8-5.6)
[2022-07-26 18:23] LABS: Microalbumin:Creatinine Ratio 195.2 mg/g CRE (<30 mg/g CRE)
[2022-07-26 18:33] LABS: AST(SGOT) 18 U/L (15-37); Alanine Aminotransfer ALT/SGPT 22 U/L (13-56); Albumin, Serum 3.6 g/dL (3.2-5.0); Alkaline Phosphatase 81 U/L (45-117); Anion Gap 4 (5-15); BUN 24 mg/dL (7-18); BUN/Creat Ratio 27.2 RATIO (10-20); Calcium,Total 9.7 mg/dL (8.5-10.1); Chloride 106 mmol/L (98-107); Cholesterol 235 mg/dL (200); Creatinine, Serum 0.88 mg/dL (0.55-1.02); EST Glomerular Filtration Rate 65 mL/min (>60); Est Glom Filt Rate - Afr Amer 79 mL/min (>60); Globulin 3.5 g/dL (2.2-4.2); Glucose 77 mg/dL (74-106); High Density Lipoprotein 67 mg/dL; Potassium 3.9 mmol/L (3.5-5.1); Protein, Total 7.1 g/dL (6.4-8.2); Sodium Level 137 mmol/L (136-145); Thyroid Stim Hormone (TSH) 3.38 uIU/mL (0.358-3.74); Triglycerides 92 mg/dL; Very Low Density Lipoprotein 18 mg/dL (5-40)
== END | disposition home or self-care (01) ==
LOC: MFPLAB 15:59
PROVIDERS: PCP Family Medicine; Visit Provider Family Medicine
DX: E11.65 Type 2 diabetes mellitus with hyperglycemia (principal)
CPT/HCPCS: 36415; 80053; 80061; 82043; 82570; 83036; 84443; 85025

== ENCOUNTER → 2023-10-20 | Outpatient (CLI) | payer MEDICARE, SELFPAY ==
[2023-10-20 17:53] LABS: Absolute Lymphocyte Count 2.08 X10^3/uL (0.83-4.51); Basophil# 0.05 X10^3/uL; Basophil% 0.9 % (0-1); Eosinophil# 0.11 X10^3/uL; Eosinophils% 1.9 % (0-5); Hematocrit 37.4 % (37-47); Hemoglobin 12.4 g/dL (12.0-15.0); Lymphocyte # 2.08 X10^3/ul (0.83-4.51); Lymphocyte % 36.6 % (19-41); Mean Corp Hgb Conc 33.2 g/dL (32-36); Mean Corpuscular Hgb 32.9 pg (27.0-32.0); Mean Corpuscular Volume 99.2 fL (81-99); Mean Platelet Vol. 9.8 fl (6.2-12.0); Monocyte# 0.42 X10^3/uL; Monocyte% 7.4 % (0-10); NRBC Flagged by Analyzer 0 % (0-5); Neutrophil # 3.01 X10^3/uL (2.7-7.7); Platelet Count 294 K/mm3 (150-450); RBC Distribution Width CV 13.2 % (11.6-14.6); RBC Distribution Width SD 48.5 fl (35.1-43.9); Red Blood Count 3.77 M/mm3 (4.2-5.4); White Blood Count 5.7 K/mm3 (4.4-11.0)
[2023-10-20 18:16] LABS: AST(SGOT) 13 U/L (15-37); Alanine Aminotransfer ALT/SGPT 22 U/L (13-56); Albumin, Serum 3.3 g/dL (3.2-5.0); Alkaline Phosphatase 78 U/L (45-117); Anion Gap 7 (5-15); BUN 21 mg/dL (7-18); BUN/Creat Ratio 22.4 RATIO (10-20); Calcium,Total 9.1 mg/dL (8.5-10.1); Chloride 104 mmol/L (98-107); Cholesterol 252 mg/dL (200); Creatinine, Serum 0.94 mg/dL (0.55-1.02); EST Glomerular Filtration Rate 60 mL/min (>60); Est Glom Filt Rate - Afr Amer 73 mL/min (>60); Globulin 3.3 g/dL (2.2-4.2); Glucose 204 mg/dL (74-106); High Density Lipoprotein 54 mg/dL; Potassium 3.9 mmol/L (3.5-5.1); Protein, Total 6.6 g/dL (6.4-8.2); Sodium Level 137 mmol/L (136-145)
[2023-10-20 18:26] LABS: Microalbumin,Random Urine 71.3 mg/L (NO RANGE EST.)
== END | disposition home or self-care (01) ==
PROVIDERS: PCP Family Medicine; Visit Provider Family Medicine
DX: E11.22 Type 2 diabetes mellitus with diabetic chronic kidney disease (principal); E11.65 Type 2 diabetes mellitus with hyperglycemia; N18.2 Chronic kidney disease, stage 2 (mild)
CPT/HCPCS: 36415; 80053; 82043; 82465; 82570; 83718; 85025

== ENCOUNTER → 2024-02-10 | Outpatient (CLI) | payer MEDICARE, SELFPAY ==
[2024-02-10 18:47] LABS: ALB/GLOB Ratio 1.1 RATIO (0.9-2.4); AST(SGOT) 15 U/L (15-37); Alanine Aminotransfer ALT/SGPT 25 U/L (13-56); Albumin, Serum 3.5 g/dL (3.2-5.0); Alkaline Phosphatase 83 U/L (45-117); Anion Gap 6 (5-15); BUN 24 mg/dL (7-18); BUN/Creat Ratio 24.5 RATIO (10-20); Calcium,Total 9.5 mg/dL (8.5-10.1); Chloride 103 mmol/L (98-107); Cholesterol 209 mg/dL (200); Creatinine, Serum 0.98 mg/dL (0.55-1.02); EST Glomerular Filtration Rate 57 mL/min (>60); Est Glom Filt Rate - Afr Amer 69 mL/min (>60); Globulin 3.3 g/dL (2.2-4.2); Glucose 229 mg/dL (74-106); High Density Lipoprotein 56 mg/dL; Potassium 4.2 mmol/L (3.5-5.1); Protein, Total 6.8 g/dL (6.4-8.2); Sodium Level 138 mmol/L (136-145); Triglycerides 270 mg/dL; Very Low Density Lipoprotein 54 mg/dL (5-40)
[2024-02-10 18:48] LABS: Absolute Lymphocyte Count 2.23 X10^3/uL (0.83-4.51); Absolute Neutrophil Count 4.1 X10^3/uL (2.0-7.7); Basophil# 0.05 X10^3/uL; Basophil% 0.7 % (0-1); Eosinophil# 0.13 X10^3/uL; Eosinophils% 1.9 % (0-5); Hematocrit 37.9 % (37-47); Hemoglobin 12.3 g/dL (12.0-15.0); Lymphocyte # 2.23 X10^3/ul (0.83-4.51); Lymphocyte % 31.9 % (19-41); Mean Corp Hgb Conc 32.5 g/dL (32-36); Mean Corpuscular Hgb 31.8 pg (27.0-32.0); Mean Corpuscular Volume 97.9 fL (81-99); Mean Platelet Vol. 9.8 fl (6.2-12.0); Monocyte# 0.49 X10^3/uL; NRBC Flagged by Analyzer 0 % (0-5); Neutrophil # 4.08 X10^3/uL (2.7-7.7); Neutrophil % 58.2 % (47-70); Platelet Count 308 K/mm3 (150-450); RBC Distribution Width CV 13.4 % (11.6-14.6); RBC Distribution Width SD 48.5 fl (35.1-43.9); Red Blood Count 3.87 M/mm3 (4.2-5.4)
[2024-02-10 20:29] LABS: Hemoglobin A1c 7.5 % (3.8-5.6)
== END | disposition home or self-care (01) ==
LOC: MFPLAB 16:21
PROVIDERS: PCP Family Medicine; Referring Provider Family Medicine; Visit Provider Family Medicine
DX: E11.65 Type 2 diabetes mellitus with hyperglycemia (principal)
CPT/HCPCS: 36415; 80053; 80061; 83036; 85025

== ENCOUNTER → 2024-02-26 | Outpatient (CLI) | payer MEDICARE, SELFPAY ==
[2024-02-26 12:52] LABS: Microalbumin,Random Urine 63.7 mg/L (NO RANGE EST.); Microalbumin:Creatinine Ratio 231.6 mg/g CRE (<30 mg/g CRE)
== END | disposition home or self-care (01) ==
LOC: MFPLAB 10:37
PROVIDERS: PCP Family Medicine; Referring Provider Family Medicine; Visit Provider Family Medicine
DX: E11.65 Type 2 diabetes mellitus with hyperglycemia (principal)
CPT/HCPCS: 82043; 82570